=== PATIENT | male | born 1970 | race Hispanic/Latino ===

== ENCOUNTER → 2021-05-15 | Outpatient (CLI) | payer OTHER ==
[~2021-05-15] MED LIST: IOPAMIDOL 370 MG/ML 200 ML INFUS..BTL INJ ONE; SODIUM CHLORIDE 0.9% 50ML 50 ML ONE
== END ==
LOC: CT 14:34
PROVIDERS: ATTEND Internal Medicine Geriatric Medicine
DX: R07.1 Chest pain on breathing (principal)
CPT/HCPCS: 71260; Q9967